=== PATIENT | female | born 1985 | race Caucasian/White ===

== ENCOUNTER 2021-02-05 15:10 | Emergency (ER) | payer OTHER, SELFPAY ==
[2021-02-05 15:20] VITALS: BP 140/78; PULSE 101; RESP 14; TEMP 36.7; O2SAT 97
--- NOTE | 2021-02-05 15:31 | ED.GENADUL_ITS ---
Discharge Plan Disposition Patient Disposition: HOME Condition: Stable Discharge Details Clinical Impression: Cat bite, Cellulitis of finger of right hand Primary Care Provider: Unknown,Unknown ED Provider: Miguel Rodriguez Home Meds and New Rx's Prescriptions: Continued amoxicillin-pot clavulanate [Augmentin] 875-125 mg Tablet 1 tab PO BID RF: 0 Discharge Instructions Instructions: Tenosynovitis (ED) Additional Instructions: At this time you do have cellulitis which is an infection of the skin and tissues of your finger. You do not yet show the signs indicative for immediate surgical intervention for flexor tenosynovitis, however your symptoms are certainly concerning and warrant prompt follow-up and reevaluation. Please continue taking the Augmentin as directed. You can take 800 mg of ibuprofen every 6 hours and 1000 mg of Tylenol every 6 hours for pain. You will be contacted by Dr. Pettit tomorrow morning for reassessment. Do not eat or drink anything after midnight tonight. If you notice any worsening of your symptoms, or any new symptoms such as vomiting, diarrhea, fever, chills, shortness of breath, chest pain, numbness, weakness, spreading of the redness, worsening pain in your finger and hand, or fainting , please return immediately to the emergency department for reevaluation. Please follow up with your primary care provider as soon as possible for reassessment and reevaluation. As always, it was a pleasure participating in your medical care today. Referrals: Jose Pettit MD [ [facility] STAFF PHYSICIAN] - Medical Decision Making Pleasant 35-year-old female who is right-hand dominant with no significant past medical history who presents today for right hand swelling after cat bite. On Friday this started she was bit by her cat who was rabies vaccine and other vaccines are up-to-date. The next day on Friday which was yesterday she went to the [place] urgent care, received a prescription for Augmentin, and had her tetanus updated. This morning she noticed significant redness around the base of her fourth finger, as well as swelling of the fourth finger and pain with movement of the finger. She denies fever or chills. She has taken Tylenol and ibuprofen this morning for pain. No other complaints at this time. No other modifying factors. Exam on the right dominant hand on the fourth digit demonstrates 2 punctate puncture wounds at the proximal aspect of the phalanges. Redness and mild swelling of the finger, mild flexion of the digit, pain with passive extension. Tenderness over the palmar aspect. Digit is not yet sausage shaped, and pain does not appear to be overly out of proportion at this stage. Patient is afebri le. Symptoms are certainly concerning for cellulitis, however she does not yet appear to demonstrate evidence at this time clinically of flexor tenosynovitis requiring surgical intervention. As a precaution we will will reach out to orthopedic and discussed the case with them. 4 PM Patient was seen and assessed by Dr. Pettit as well. Patient is notably hesitant to embark on a surgical intervention at this time. Through shared decision-making process weighing the risks and benefits, myself, Dr. Pettit and the patient all had a joint conversation together. Taking into consideration patient preferences, and the current clinical assessment the patient will continue on Augmentin tonight and tomorrow. She will remain n.p.o. after midnight, Dr. Pettit contact her in the morning for reassessment and discussion of potential surgical intervention depending on her current clinical status at that time. All of this was discussed thoroughly with the patient, she agrees with the plan. Contact number is updated in the chart ([phone]). At this time the patient clinical presentation is not indicative of emergent surgical intervention at this time. Discussed red flags for which to return. I have extensively reviewed the treatment plan and discharge instructions with the patient. I have addressed all patient concerns at this time. The patient was made aware of what symptoms to monitor for that would warrant a return to the emergency department. Discussed the plan with the patient, they demonstrate verbal understanding and agreement with our assessment and plan at this time. The documentation in this chart was dictated using [employer] dictation software. Please excuse any dictation errors. HPI General Date/Time Provider Initiated Documentation: 02/05/21 15:12 . HPI Narrative: Pleasant 35-year-old female who is right-hand dominant with no signif icant past medical history who presents today for right hand swelling after cat bite. On Friday this started she was bit by her cat who was rabies vaccine and other vaccines are up-to-date. The next day on Friday which was yesterday she went to the [place] urgent care, received a prescription for Augmentin, and had her tetanus updated. This morning she noticed significant redness around the base of her fourth finger, as well as swelling of the fourth finger and pain with movement of the finger. She denies fever or chills. She has taken Tylenol and ibuprofen this morning for pain. No other complaints at this time. No other modifying factors. Related Data Home Medications Medication Instructions Recorded Confirmed amoxicillin-pot clavulanate 1 tab PO BID 02/05/21 02/05/21 [Augmentin] Allergies Allergy/AdvReac Type Severity Reaction Status Date / Time No Known Allergies Allergy Unverified 02/05/21 15:34 General Stated Complaint: Cellulitis CHEIKH: 3 Review of Systems All systems reviewed & are unremarkable except as noted in HPI and below PFSH Social History Smoking/Tobacco Use Status: Never Smoking risk assessment performed?: Yes Alcohol Intake: current Alcohol Intake frequency: a few times a month Drug use: Daily Substance use type: marijuana Do you feel safe at home: Yes Do you feel safe in your relationship?: Yes Exam Narrative Exam Narrative: 1.Const: Well-nourished, Well-developed, appearing stated age 2.Eyes: PERRL, no conjunctival injection, and symmetrical lids. 3.ENT: Atraumatic external nose and ears. Moist MM. Neck: Symmetric, trachea midline, No thyromegaly. 4.CVS: +S1/S2, No murmurs or gallops. Peripheral pulses 2+ and equal in all extremities. Brisk capillary refill in all extremities. 5.RESP: Unlabored respiratory effort. Clear to auscultation bilaterally. No wheezes rales or rhonchi 6.GI: Soft, Nontender/Nondistended, No hepatosplenomegaly. No guarding or rebound. 7.MSK: Patient's right hand demonstrates 2 punctate bite peterson over the fourth finger at the proximal phalanges, 1 bite peterson on each side. The finger is mildly swollen, tender throughout but most tender over the flexor surface. Mild pain with both passive and active extension. Mild tenderness on the palmar aspect. She is not yet achieved evidence of a sausage shaped digit though. And the pain is currently not out of proportion. 8.Skin: The fourth digit on the right hand demonstrates mild erythema, and warmth. 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 Sensation grossly intact, no focal neurologic deficits. 10.Psych: (AAO) x3. Appropriate mood and affect Course Vital Signs Vital signs: Vital Signs Temperature 36.7 C 02/05/21 15:20 Pulse 101 H 02/05/21 15:20 Respiratory Rate 14 02/05/21 15:20 Blood Pressure 140/78 02/05/21 15:20 Pulse Oximetry 97 02/05/21 15:20 Temperature 36.7 C 02/05/21 15:20 Temperature Source Skin 02/05/21 15:20 Pulse 101 H 02/05/21 15:20 Respiratory Rate 14 02/05/21 15:20 Blood Pressure 140/78 02/05/21 15:20 Blood Pressure Position Sitting 02/05/21 15:20 Pulse Oximetry 97 02/05/21 15:20 Oxygen Delivery Method Room Air 02/05/21 15:20 Oxygen Flow Rate 0 02/05/21 15:20 Pain Level 1 02/05/21 15:20
[2021-02-05 16:26] VITALS: PULSE 87; O2SAT 98
--- NOTE | 2021-02-05 19:46 | OCONE_ITS ---
Date of service: 02/05/21 Time of Service: 16:09 History of Present Illness History of Present Illness Chief Complaint: Right Ring Finger Infection Narrative: Teresa is a 35-year-old abzsw-qnpg-jrmiabms female who presents today with continued pain and swelling of her right ring finger. On Friday, she was bitten by a sick cat who had punctured the ulnar and radial aspect of the ring finger. She is seen at the [place] urgent care and started on Augmentin on Friday. Today she noticed increasing swelling, redness, and pain with limited motion of the right ring finger. She presented for further evaluation. I was consulted by Dr. Rodriguez for concern for infectious flexor tenosynovitis of the right ring finger. She has been taking the Augmentin (3 doses thus far) and has been using Ibuprofen and Tylenol. Consults Consult date: 02/05/21 Requesting physician: Miguel Rodriguez Consult Reason R Hand / Ring Finger Infection Assessment and Plan Assessment and plan (1) Cellulitis of finger of right hand: Status: Acute Assessment and plan: Teresa is a 35-year-old ooshd-qqut-gimvzypt female who unfortunately suffered a cat bite to her right ring finger on Friday. She has developed redness and swelling which is concerning for suppurative flexor tenosynovitis. She does not have all 4 Kanavel findings but does have a least 2, if not 3, of the 4. She has been started antibiotics and has had worsening. She has only had 2 full doses in her system and I do think it would take up to 4 to possibly have an effect. However, I was very honest with Teresa that this will likely require surgical debridement. There is a high complication rate for delaying treatment. It is possible to be treated with antibiotics alone but if we do not see improvement by tomorrow morning then surgical debridement must be performed. I reviewed the surgery with her but she came quite emotional and crying and discussion of the next treatment options. I think is imperative that we do not delay treatment we also have to patel into it today. My plan would be for her to be n.p.o. after midnight and we will reevaluate tomorrow morning. If she is still having persistent symptoms without notable improvement, and I would recommend irrigation debridement of the flexor tendon sheath of the ring finger with administration of IV antibiotics. I did not go into much more detail as she was somewhat distraught with discussion of the treatment options. She will continue with elevation. I recommend she not try to work this week. Her questions were answered. We will follow up first thing in the morning. (2) Cat bite: Status: Acute Qualifiers: Encounter type: initial encounter Qualified Code(s): W55.01XA - Bitten by cat, initial encounter Review of Systems All systems reviewed & are unremarkable except as noted in HPI and below PFSH Social History Smoking/Tobacco Use Status: Never Smoking risk assessment performed?: Yes Alcohol Intake: current Alcohol Intake frequency: a few times a month Drug use: Daily Substance use type: marijuana Do you feel safe at home: Yes Do you feel safe in your relationship?: Yes Exam Narrative Exam Narrative: NAD. De Leon. AAOx3. RUE evaluation shows clear swelling about the ring finger MCP region. This fullness is both palmar and dorsal extending toward the little and middle fingers. The swelling extends into the proximal phalanx of the ring finger toward the PIP joint and to about the distal palmar flexion crease. There is some mild redness in this area and some global mild swelling throughout the hand. There are two small puncture wounds over the radial and ulnar aspect of the proximal phalanx of the ring finger, about midway between the MCP and PIP flexion creases. The punctures appear at the midaxial line, neither dorsal or palmar. The finger is held in slight flexion of the MCP and PIP joint. There is some pain to palpation over the MCP joint and proximal phalanx. No pain to palpation of the flexor tendon from the mid-middle phalanx distally and no pain over the tendon in the palm, proximal to the proximal palmar flexion crease. She is able to tolerate some passive extension of the DIP joint. While the finger is swollenit is not fusiform. There is no pain over the radial bursa or ulnar bursa. No fullness in the deep space of the palm. Fingertip is warm and well-perfused with capillary refill less than 2 seconds. Results Last Vital Signs Temp 36.7 C 02/05/21 15:20 Pulse 87 02/05/21 16:26 Resp 14 02/05/21 15:20 BP 140/78 02/05/21 15:20 Pulse Ox 98 02/05/21 16:26
== END 2021-02-05 16:25 | disposition home or self-care (01) ==
PROVIDERS: Emergency Provider Student in an Organized Health Care Education/Training Program
DX: S61.254A Open bite of right ring finger without damage to nail, initial encounter (principal); L03.011 Cellulitis of right finger; W55.01XA Bitten by cat, initial encounter
CPT/HCPCS: 99252; 99282; 99284

== ENCOUNTER 2021-02-06 08:01 | Outpatient (CLI) | payer OTHER, SELFPAY ==
[2021-02-06 11:12] LABS: Source Nasal/Nares
[2021-02-06 11:49] LABS: COVID-19 PCR Negative (Negative)
== END 2021-02-06 08:02 | disposition home or self-care (01) ==
LOC: LBO 08:01
PROVIDERS: Visit Provider Student in an Organized Health Care Education/Training Program
DX: Z20.828 Contact with and (suspected) exposure to other viral communicable diseases (principal); Z01.818 Encounter for other preprocedural examination
CPT/HCPCS: 87635

== ENCOUNTER 2021-02-06 10:09 | Day surgery (SDC) | payer OTHER, SELFPAY ==
[2021-02-06] VITALS (12 sets, daily range): BP systolic 63–125; BP diastolic 34–73; PULSE 54–91; RESP 13–29; TEMP 36.2–36.6; O2SAT 95–100
[2021-02-06] MEDS: Lactated Ringers 1,000 ML 80 ML IV (11:25)
--- NOTE | 2021-02-06 11:27 | HPE_ITS ---
Date of service: 02/06/21 Time of Service: 11:27 Assessment and Plan Assessment and plan (1) Suppurative tenosynovitis of flexor tendon of both hands: Status: Acute Assessment and plan: Teresa is a 35-year-old who has suppurative flexor tenosynovitis of the right ring finger from a cat bite. She has failed oral antibiotics and has worsening symptoms. Is imperative that we proceed with surgical debridement of the flexor tendon sheath to prevent further complications. This will require some intravenous antibiotics which we will hopefully do an outpatient fashion, ceftriaxone 2 g daily. I am working with the care management team to make sure we have insurance approval for this. I expect that she will need IV antibiotics for a few days. She will also need some oral antibiotic starting now as well as when the IV antibiotics stop. I was very honest with Teresa that range of motion will be challenging. It is imperative that we start working finger soon as possible and the biggest comp lication with this particular pathology is flexor tendon adhesions. I reviewed the treatment options with Teresa and was very clear that this is the recommended past. I discussed the technical details of the procedure. I reviewed the risk of the procedure to include continued infection, bleeding, damage to nerves and vessels, stiffness, need for repeat procedures. Despite these risks, she elects to proceed. History of Present Illness History of Present Illness Chief Complaint: RRF Infection Narrative: When asked is a 35-year-old who I saw yesterday in consultation in the emergency department. She suffered a cat bite on Friday with worsening swelling, rednes s, and pain. There was concern about suppurative flexor tenosynovitis of the right ring finger yet she still did not have significant fusiform swelling and there is still some passive extension possible. However, I have a strong suspicion this would require surgical intervention. After discussing this with the [employer] we elected to allow antibiotics 1 more dosing to work in the check in the morning. I called her this morning, has she reported that things are largely unchanged. She denies fevers or chills. She still continues to have pain, swelling, and redness. Given the limitations and the concern for an a suppurative flexor tenosynovitis I recommended surgical debridement as this is the standard treatment. Review of Systems All systems reviewed & are unremarkable except as noted in HPI and below [facility] Medical History History of recent animal bite 02/03/21 Social History Smoking/Tobacco Use Status: Never Smoking risk assessment performed?: Yes Alcohol Intake: current Alcohol Intake frequency: a few times a month Drug use: Daily Substance use type: marijuana Details: last smoke 02/05/21 Do you feel safe at home: Yes Do you feel safe in your relationship?: Yes Additional Social history: Moved from [place] a few weeks ago; living with friend. Meds Home Medications and Allergies Allergies Allergy/AdvReac Type Severity Reaction Status Date / Time No Known Allergies Allergy Unverified 02/06/21 10:35 Home Medications Medication Instructions Recorded Confirmed Type amoxicillin-pot clavulanate 1 tab PO BID 02/05/21 02/06/21 History [Augmentin] Exam Narrative Exam Narrative: No acute distress. Alert and x3. Chest clear auscultation bilaterally. Heart rate and rhythm are regular. Evaluation of right hand shows notable swelling focused around the ring finger MCP joint extending both dorsally and palmarly. There is notable swelling up to the level of the middle phalanx of the ring finger with a fixed flexed posture. Any attempted extension causes significant pain. Some pain along the palmar ring finger tendon, from the level of the middle phalanx down to the level of the A1 emir. Results Last Vital Signs Temp 36.5 C 02/06/21 10:39 Pulse 91 H 02/06/21 10:39 Resp 16 02/06/21 10:39 BP 111/72 02/06/21 10:39 Pulse Ox 99 02/06/21 10:39
--- NOTE | 2021-02-06 11:48 | W.PM.DSUDISC ---
Documented by User: CHUY Cano 02/06/21 11:57 Discharge Plan Disposition Patient Disposition: HOME Condition: Good Discharge Details Reason For Visit: RIF FLEXOR TENOSYNOVITIS Attending Provider: Jose Pettit Primary Care Provider: No,Local Home Meds and New Rx's Prescriptions: New clindamycin HCl 300 mg capsule 300 mg PO TID Qty: 30 RF: 0 acetaminophen 500 mg capsule 1,000 mg PO Q8H PRN PRNQty: 90 RF: 0 hydrocodone-acetaminophen 5-325 mg tablet 1 tab PO Q6H PRN (Reason: pain) Qty: 6 RF: 0 ibuprofen 600 mg tablet 600 mg PO TID PRN (Reason: pain) Qty: 30 RF: 0 Discontinued amoxicillin-pot clavulanate [Augmentin] 875-125 mg Tablet 1 tab PO BID RF: 0 Discharge Instructions Additional Instructions: I&D Finger Discharge Instructions Activity: You may use your fingers for light activity. You should limit any excessive motion or forceful gripping until the sutures have been removed. Dressings: You should keep the initial surgical dressing and splint in place for at least 3 days. You may remove your dressings/splint and get the wound wet after 3 days. You should keep the dressings and the wound clean at all times. Splint is to be used for comfort. You may keep the initial dressing in place until your follow-up but keep the wound covered with light gauze until the sutures are removed. Medications: - Antibiotics: You will be taking Clindamycin 300mg three times a day by mouth. For the first 3 days (and to be reassessed on Friday), you will have intravenous antiobiotics, Ceftriaxone. These will be adminstered in the infusion room at [facility] at 1pm. You should check in at the main entrance a few minutes prior to this time. To be determined at your follow-up visit, you will likely switch back to Augmentin after your Friday infusion if showing clinical improvement. - You should take Tylenol and Ibuprofen around the clock as prescribed or per metal ceiling builder's recommendations. - You have Hydrocodone prescribed for breakthrough pain control. Take only as needed and limit use as much as possible. This may cause constipation. Follow-up: Friday for wound check and suture removal. Stand Alone Forms: Anesthesia Discharge Inst. Referrals: Jose Pettit MD [ [facility] STAFF PHYSICIAN] - 02/09/21 11:15 am (Second followup appointment at Friday02/16/21 at 11am. Infusion Room, 2nd floor [facility]: IV antibiotic: 02/07/21-02/09/21 at 1pm.) Equipment/Supplies: Splint Activity:: Elevate Remove Dressings/Wound Care:: 72 hours Shower/Bathe:: 72 hours Diet:: As Tolerated Discharge Orders Discharge Orders: Discharge Order (Routine); Ordered 02/06/21 Ordered By: Jorge Rodriguez DS: Diagnosis Discharge Diagnosis (1) Suppurative tenosynovitis of flexor tendon of both hands: Status: Acute Documented by User: Jose Pettit MD 02/06/21 13:43 Discharge Plan Disposition Patient Disposition: HOME Condition: Good Discharge Details Reason For Visit: RIF FLEXOR TENOSYNOVITIS Attending Provider: Jose Pettit Primary Care Provider: ,[facility] Home Meds and New Rx's Prescriptions: New clindamycin HCl 300 mg capsule 300 mg PO TID Qty: 30 RF: 0 acetaminophen 500 mg capsule 1,000 mg PO Q8H PRN PRNQty: 90 RF: 0 hydrocodone-acetaminophen 5-325 mg tablet 1 tab PO Q6H PRN (Reason: pain) Qty: 6 RF: 0 ibuprofen 600 mg tablet 600 mg PO TID PRN (Reason: pain) Qty: 30 RF: 0 Discontinued amoxicillin-pot clavulanate [Augmentin] 875-125 mg Tablet 1 tab PO BID RF: 0 Discharge Instructions Additional Instructions: I&D Finger Discharge Instructions Activity: You may use your fingers for light activity. You should limit any excessive motion or forceful gripping until the sutures have been removed. Dressings: You should keep the initial surgical dressing and splint in place for at least 3 days. You may remove your dressings/splint and get the wound wet after 3 days. You should keep the dressings and the wound clean at all times. Splint is to be used for comfort. You may keep the initial dressing in place until your follow-up but keep the wound covered with light gauze until the sutures are removed. Medications: - Antibiotics: You will be taking Clindamycin 300mg three times a day by mouth. For the first 3 days (and to be reassessed on Friday), you will have intravenous antiobiotics, Ceftriaxone. These will be adminstered in the infusion room at [facility] at 1pm. You should check in at the main entrance a few minutes prior to this time. To be determined at your follow-up visit, you will likely switch back to Augmentin after your Friday infusion if showing clinical improvement. - You should take Tylenol and Ibuprofen around the clock as prescribed or per metal ceiling builder's recommendations. - You have Hydrocodone prescribed for breakthrough pain control. Take only as needed and limit use as much as possible. This may cause constipation. Follow-up: Friday for wound check and suture removal. Stand Alone Forms: Anesthesia Discharge Inst. Referrals: Jose Pettit MD [ [facility] STAFF PHYSICIAN] - 02/09/21 11:15 am (Second followup appointment at Friday02/16/21 at 11am. Infusion Room, 2nd floor [facility]: IV antibiotic: 02/07/21-02/09/21 at 1pm.) Equipment/Supplies: Splint Activity:: Elevate Remove Dressings/Wound Care:: 72 hours Shower/Bathe:: 72 hours Diet:: As Tolerated Discharge Orders Discharge Orders: Discharge Order (Routine); Ordered 02/06/21 Ordered By: Jorge Rodriguez
[2021-02-06] MEDS: AMPICILLIN/SULBACTAM 3 GM in Normal Saline 100 ML IVPB (11:59)
[2021-02-06] MEDS: Sodium Bicarbonate 50 MEQ/50 ML VIAL (12:13)
[2021-02-06] MEDS: Ketorolac 15 MG/ML VIAL (12:57)
[2021-02-06] MEDS: fentaNYL 100 MCG/2 ML VIAL IVP ×2 (13:12→13:46)
[2021-02-06] MEDS: ePHEDrine 50 MG/ML VIAL IVP (13:43)
[2021-02-06] MEDS: cefTRIAXone 2 GM/50 ML BAG IVPB (14:38)
--- NOTE | 2021-02-06 16:48 | CMPROGNOTE_ITS ---
- If Service Date Differs Date of service: 02/06/21 Time of Service: 16:48 Care Management Progress Note At Dr. Pettit's request, CM telephones patient's insurance company, [employer], to inquire if I.V. Ceftriaxone (Rocephin - [id number]), 2 grams daily, for 3 days requires preauthorization. [place] speaks with Jimmy Lozano at [employer] and at 12:27 pm eastern time on this day is advised that no preauthorization is required as long as the antibiotic is administered under 28 days and not for Lyme disease.
--- NOTE | 2021-02-06 21:17 | W.PM.OP ---
Date of service: 02/06/21 Time of Service: 12:41 Operative Note Operative Note DATE OF PROCEDURE: 02/06/21 PRE-OP DIAGNOSIS: Right Ring Finger Infectious Flexor Tenosynovitis POST-OP DIAGNOSIS: same PROCEDURE: Right Ring Finger Irrigation and Debridement SURGEON: Jose Pettit ANESTHESIA TYPE: General:No Airway Refer to Anesthesia Record ESTIMATED BLOOD LOSS: 5 PATHOLOGY: other (Fluid was sent for aerobic and anaerobic culture) COMPLICATIONS: None Patient was transported to: PACU Patient's condition: stable Indications: I have seen Teresa in the emergency department with concerns for flexor tenosynovitis. We attempted a brief course of antibiotic treatment, however, she was having no resolution of symptoms and given the concerns for flexor tenosynovitis, I urged surgical intervention. I reviewed the risks of surgical debridement of the right ring finger and the tendon sheath to include, but not limited to, bleeding, continued infection, pain, stiffness, damage to nerves or vessels, need for repeat procedures. Despite these risks, the patient elected to proceed. Findings: There is gross purulence within the flexor tendon sheath. The sheath was irrigated by releasing the A1 emir and placing a catheter along the sheath through the A5 emir. Procedure Description: Teresa was greeted in the preoperative holding area where the correct side was identified and marked. The consent was reviewed with the patient and signed. All questions were answered. Teresa was taken back to the operating room. The patient was placed into the supine position on the operating room table with the right arm on an arm board. All bony prominences were well padded. Unasyn was administered as prophylactic antibiotics once the initial surgical culture of fluid was obtained. The right arm was then prepped with Chloraprep and draped in a standard fashion with stockinette and extremity drape. A timeout to confirm correct identity, side and site, procedure, allergies, anesthesia, and medical concerns was performed. A general anesthetic was administered. The surgical site was marked as a Yanria type incision along the finger with a horizontal component at the DIP flexion crease. The penetrating wounds from the cat bite were closed and showed no signs of areas of fluctuance underneath them so the focus was on the flexor tendon sheath. The proximal portion of this Yanira incision overlying the A1 emir was incised sharply. Deeper dissection was carried down bluntly. The flexor tendon sheath was identified. There is already noted to be some thickening of this area. The A1 emir was incised. There is no gross purulence right at this area. However, gentle pressure of the finger expressed gross pus exiting from the flexor tendon sheath. This fluid was swabbed and sent for aerobic and anaerobic culture. I then made a transverse incision in the DIP flexion crease. This was taken through skin only and the A5 emir was identified. The A5 emir was opened but not incised such that I was able to see the FDP tendon. A 16-gauge angiocatheter was then threaded into the flexor tendon sheath. Using a syringe I irrigated the tendon sheath from distal to proximal until there is clear flow of fluid and then once again from proximal to distal and then returning once again from distal to proximal. I used normal saline as well as chlorhexidine irrigation solution. Once the tendon sheath was copiously irrigated, I irrigated the surgical sites independently. There is no remaining purulence. There is no expressible purulence from the remainder of the hand and no areas of fluctuance. After this final inspection, the wounds were then irrigated and the skin was closed with a 4-0 Nylon. This was dressed with gauze and a Conform dressing. A resting volar slab splint was applied in intrinsic plus position. The patient tolerated the procedure well and was returned to the PACU in a stable condition suffering no known complication.
== END 2021-02-06 16:25 | disposition home or self-care (01) ==
PROVIDERS: Visit Provider Student in an Organized Health Care Education/Training Program
PROC: 0L970ZZ Drainage of Right Hand Tendon, Open Approach (ICD-10-PCS; CPT 26055; principal; 2021-02-06 13:30)
DX: M65.141 Other infective (teno)synovitis, right hand (principal); M65.142 Other infective (teno)synovitis, left hand; S61.452S Open bite of left hand, sequela; S61.451S Open bite of right hand, sequela; W55.01XS Bitten by cat, sequela
CPT/HCPCS: 26020; 87077; NC; 87070; 87075; 87186; 87205; J0295; J1885; J2001; J2250; J2405; J3010

== ENCOUNTER 2021-02-09 05:29 | Outpatient (RCR) | payer OTHER, SELFPAY ==
[2021-02-07] MEDS: cefTRIAXone 2 GM/50 ML BAG IVPB (13:23)
[2021-02-07] MEDS: Normal Saline Flush 10 ML SYR IVP (13:24)
[2021-02-08] MEDS: cefTRIAXone 2 GM/50 ML BAG IVPB (13:17)
[2021-02-08] MEDS: Normal Saline Flush 10 ML SYR IVP (13:17)
== END 2021-03-02 23:59 | disposition home or self-care (01) ==
LOC: INF 05:29
PROVIDERS: Visit Provider Student in an Organized Health Care Education/Training Program
DX: M65.141 Other infective (teno)synovitis, right hand
CPT/HCPCS: 96365